=== PATIENT | female | born 1985 | race Caucasian/White ===

== ENCOUNTER 2017-11-12 10:15 | Inpatient (IN) | payer MEDICAID ==
[~2017-11-12 10:15] MED LIST: OXYTOCIN 30 UNITS/LR 500 ML BAG IV
[2017-11-12] MEDS ORDERED: MISOPROSTOL 200 MCG TAB PR ×2 (11:00→17:30)
[2017-11-12] MEDS ORDERED: CARBOPROST 250 MCG INJ IM ×2 (11:00→17:30)
[2017-11-12] MEDS ORDERED: METHYLERGONOVINE 0.2 MG INJ IM ×2 (11:00→17:30)
[2017-11-12] MEDS ORDERED: OXYTOCIN 30 UNITS/LR 500 ML IV ×2 (11:00→17:30)
[2017-11-12] MEDS: LACTATED RINGER'S 1,000 ML IV ×3 (11:23→21:46)
[2017-11-12 11:30] LABS: ADD MAN DIFF? NO
[2017-11-12] MEDS: DEXTROSE 5%-LR 1,000 ML IV (11:38)
[2017-11-12 11:39] LABS: WHITE BLOOD COUNT 9.4 10^3/ul (4.8-10.8)
[2017-11-12 11:39] LABS: BASOPHILS % 0.4 % (0.0-2.0); EOSINOPHILS # 0.1 10^3/ul (0.0-0.5); EOSINOPHILS % 0.7 % (0.0-7.0); HEMATOCRIT 36.7 % (37.0-47.0); HEMOGLOBIN 11.9 g/dl (12.0-16.0); LYMPHOCYTES # 2.5 10^3/ul (0.8-2.9); MEAN CORPUSCULAR HEMOGLOBIN 30.7 pg (29.0-33.0); MEAN CORPUSCULAR HGB CONC 32.4 g/dl (32.0-37.0); MEAN CORPUSCULAR VOLUME 94.8 fl (82.0-101.0); MEAN PLATELET VOLUME 12.9 fl (7.4-10.4); MONOCYTE # 0.7 10^3/ul (0.3-0.9); MONOCYTES % 7.1 % (0.0-11.0); NEUTROPHIL # 6.1 10^3/ul (1.6-7.5); NEUTROPHILS % 64.6 % (39.0-77.0); PLATELET COUNT 173 10^3/UL (140-415); RED BLOOD COUNT 3.87 10^6/ul (4.20-5.40); RED CELL DISTRIBUTION WIDTH 12.9 % (11.5-14.5)
[2017-11-12 11:59] LABS: ALANINE AMINOTRANSFERASE 20 IU/L (13-69); ALBUMIN 3.6 g/dl (3.3-4.9); ALBUMIN/GLOBULIN RATIO 1.09; ALKALINE PHOSPHATASE 194 IU/L (42-121); ANION GAP 11 (8-16); ASPARTATE AMINO TRANSFERASE 22 IU/L (15-46); BILIRUBIN,INDIRECT 0.6 mg/dl (0-1.1); BILIRUBIN,TOTAL 0.6 mg/dl (0.2-1.3); BLOOD UREA NITROGEN 11 mg/dl (7-20); CALCIUM 8.8 mg/dl (8.4-10.2); CARBON DIOXIDE 22 mmol/L (21-31); CHLORIDE 108 mmol/L (97-110); CREATININE 0.64 mg/dl (0.44-1.00); GLUCOSE 72 mg/dl (70-220); SODIUM 137 mmol/L (135-144); TOTAL PROTEIN 6.9 g/dl (6.1-8.1); URIC ACID 5.4 mg/dl (3.1-7.9)
[2017-11-12 12:16] LABS: INR 0.92; PROTIME 12.4 Sec (11.9-14.9)
[2017-11-12 12:17] LABS: PARTIAL THROMBOPLASTIN TIME 25.2 Sec (25.0-35.0)
[2017-11-12] MEDS ORDERED: BUPIVACAINE 0.75%/DEXT (SPINAL) 2 ML INJ (12:40)
[2017-11-12] MEDS ORDERED: morphine SULFATE/PF (10 MG/10 ML) INJ (12:40)
[2017-11-12] MEDS ORDERED: PHENYLephrine (100 MCG/ML) 5ML SYG (12:48)
[2017-11-12 13:14] LABS: ADD UMIC NO; UR ASCORBIC ACID NEGATIVE (NEGATIVE); UR BILIRUBIN (Dip) NEGATIVE (NEGATIVE); UR BLOOD (Dip) NEGATIVE (NEGATIVE); UR CLARITY CLEAR (CLEAR); UR COLOR YELLOW (YELLOW); UR GLUCOSE (Dip) NEGATIVE (NEGATIVE); UR KETONES (Dip) NEGATIVE (NEGATIVE); UR LEUKOCYTE ESTERASE (Dip) NEGATIVE Leu/ul (NEGATIVE); UR NITRITE (Dip) NEGATIVE (NEGATIVE); UR SPECIFIC GRAVITY (Dip) 1.012 (1.003-1.030); UR TOTAL PROTEIN (Dip) NEGATIVE (NEGATIVE); UR UROBILINOGEN (Dip) NEGATIVE (NEGATIVE)
[2017-11-12] MEDS: CEFAZOLIN 2 GM/50 ML (PMX) 50 ML IV (14:55)
[2017-11-12] MEDS: OXYTOCIN 30 UNITS/LR 500 ML IV ×2 (15:02→22:30)
[2017-11-12 15:16] LABS: RAPID PLASMA REAGIN NONREACTIVE (NR)
[2017-11-12] MEDS ORDERED: FENTAnyl 50 MCG/ML VIAL IV ×2 (16:00)
[2017-11-12] MEDS ORDERED: ONDANSETRON 4 MG INJ IV (16:00)
[2017-11-12] MEDS ORDERED: DIPHENHYDRAMINE 50 MG INJ IV ×2 (16:00)
[2017-11-12] MEDS ORDERED: HYDROmorphONE 1 MG/5 ML IV SYRINGE IV ×2 (16:00)
[2017-11-12] MEDS ORDERED: KETOROLAC 30 MG INJ IV ×2 (16:00)
[2017-11-12] MEDS ORDERED: METOCLOPRAMIDE 10 MG INJ IV (16:00)
[2017-11-12] MEDS ORDERED: NALOXONE (0.4 MG/ML) INJ IV (16:00)
[2017-11-12] MEDS ORDERED: HYDROmorphONE 0.5 MG/0.5 ML SYG IV (16:00)
[2017-11-12] MEDS ORDERED: LANOLIN 7 GM TUBE TOP (17:30)
[2017-11-12] MEDS: ONDANSETRON 4 MG INJ IV (19:41)
[2017-11-12] MEDS: SENNA/DOCUSATE NA (8.6MG/50MG) TAB PO (21:00)
[2017-11-13] MEDS: LACTATED RINGER'S 1,000 ML IV ×2 (06:09→17:24)
[2017-11-13 08:50] LABS: ADD MAN DIFF? NO
[2017-11-13 08:53] LABS: BASOPHILS % 0.2 % (0.0-2.0); EOSINOPHILS % 0.2 % (0.0-7.0); HEMATOCRIT 31.3 % (37.0-47.0); HEMOGLOBIN 10.6 g/dl (12.0-16.0); LYMPHOCYTES # 1.7 10^3/ul (0.8-2.9); LYMPHOCYTES % 10.7 % (15.0-51.0); MEAN CORPUSCULAR HEMOGLOBIN 31.9 pg (29.0-33.0); MEAN CORPUSCULAR HGB CONC 33.9 g/dl (32.0-37.0); MEAN CORPUSCULAR VOLUME 94.3 fl (82.0-101.0); MONOCYTE # 0.9 10^3/ul (0.3-0.9); MONOCYTES % 5.9 % (0.0-11.0); NEUTROPHIL # 13.2 10^3/ul (1.6-7.5); NEUTROPHILS % 82.3 % (39.0-77.0); PLATELET COUNT 156 10^3/UL (140-415); RED BLOOD COUNT 3.32 10^6/ul (4.20-5.40); RED CELL DISTRIBUTION WIDTH 12.8 % (11.5-14.5)
[2017-11-13] MEDS: SENNA/DOCUSATE NA (8.6MG/50MG) TAB PO ×2 (09:18→20:20)
[2017-11-13] MEDS: HYDROmorphONE 0.5 MG/0.5 ML SYG IV (13:07)
[2017-11-13] MEDS: IBUPROFEN 800 MG TAB PO ×2 (16:00→22:10)
[2017-11-13] MEDS: OXYCODONE/ACETAMINOPHEN (5/325) TAB PO ×2 (16:05→20:20)
[2017-11-14] MEDS: OXYCODONE/ACETAMINOPHEN (5/325) TAB PO ×3 (00:33→20:00)
[2017-11-14] MEDS: LACTATED RINGER'S 1,000 ML IV ×2 (01:24→09:24)
[2017-11-14] MEDS: IBUPROFEN 800 MG TAB PO ×3 (05:44→21:17)
[2017-11-14] MEDS: SENNA/DOCUSATE NA (8.6MG/50MG) TAB PO ×2 (09:33→21:17)
[2017-11-14 10:27] LABS: ADD MAN DIFF? NO
[2017-11-14 10:34] LABS: BASOPHIL # 0.1 10^3/ul (0.0-0.1); BASOPHILS % 0.3 % (0.0-2.0); EOSINOPHILS # 0.1 10^3/ul (0.0-0.5); EOSINOPHILS % 0.3 % (0.0-7.0); HEMATOCRIT 30.5 % (37.0-47.0); HEMOGLOBIN 10.1 g/dl (12.0-16.0); LYMPHOCYTES # 2.3 10^3/ul (0.8-2.9); LYMPHOCYTES % 12.6 % (15.0-51.0); MEAN CORPUSCULAR HEMOGLOBIN 31.2 pg (29.0-33.0); MEAN CORPUSCULAR HGB CONC 33.1 g/dl (32.0-37.0); MEAN CORPUSCULAR VOLUME 94.1 fl (82.0-101.0); MONOCYTE # 1.2 10^3/ul (0.3-0.9); MONOCYTES % 6.6 % (0.0-11.0); NEUTROPHIL # 14.6 10^3/ul (1.6-7.5); NEUTROPHILS % 79.5 % (39.0-77.0); PLATELET COUNT 188 10^3/UL (140-415); RED BLOOD COUNT 3.24 10^6/ul (4.20-5.40); RED CELL DISTRIBUTION WIDTH 13.1 % (11.5-14.5)
[2017-11-14 10:34] LABS: WHITE BLOOD COUNT 18.3 10^3/ul (4.8-10.8)
[2017-11-15] MEDS: IBUPROFEN 800 MG TAB PO ×2 (05:10→13:27)
[2017-11-15] MEDS: SENNA/DOCUSATE NA (8.6MG/50MG) TAB PO (08:12)
[2017-11-15] MEDS: OXYCODONE/ACETAMINOPHEN (5/325) TAB PO ×2 (08:12→13:27)
[2017-11-15 08:28] LABS: ADD MAN DIFF? NO
[2017-11-15 08:30] LABS: BASOPHILS % 0.2 % (0.0-2.0); EOSINOPHILS # 0.1 10^3/ul (0.0-0.5); EOSINOPHILS % 0.8 % (0.0-7.0); HEMATOCRIT 28.1 % (37.0-47.0); LYMPHOCYTES # 2.3 10^3/ul (0.8-2.9); LYMPHOCYTES % 17.4 % (15.0-51.0); MEAN CORPUSCULAR HEMOGLOBIN 30.6 pg (29.0-33.0); MEAN CORPUSCULAR VOLUME 95.6 fl (82.0-101.0); MEAN PLATELET VOLUME 11.6 fl (7.4-10.4); MONOCYTE # 0.7 10^3/ul (0.3-0.9); MONOCYTES % 5.1 % (0.0-11.0); NEUTROPHIL # 9.9 10^3/ul (1.6-7.5); NEUTROPHILS % 75.7 % (39.0-77.0); PLATELET COUNT 204 10^3/UL (140-415); RED BLOOD COUNT 2.94 10^6/ul (4.20-5.40); RED CELL DISTRIBUTION WIDTH 13.3 % (11.5-14.5)
[2017-11-15] MEDS: DIPHTH/TET/ACEL PERTUSS (ADULT) 0.5 ML VIAL IM* (10:35)
== END 2017-11-15 17:15 | disposition home or self-care (01) | DRG 766 ==
LOC: L-D 10:15 → PP1 17:09
PROC: 10D00Z1 Extraction of Products of Conception, Low, Open Approach (ICD-10-PCS; principal; 2017-11-12 12:30)
PROC: 0UB70ZZ Excision of Bilateral Fallopian Tubes, Open Approach (ICD-10-PCS; 2017-11-12 12:30)
PROC: 0UN90ZZ Release Uterus, Open Approach (ICD-10-PCS; 2017-11-12 12:30)
DX: O24.429 Gestational diabetes mellitus in childbirth, unspecified control (principal); O34.211 Maternal care for low transverse scar from previous cesarean delivery; O99.89 Other specified diseases and conditions complicating pregnancy, childbirth and the puerperium; N73.6 Female pelvic peritoneal adhesions (postinfective); Z3A.38 38 weeks gestation of pregnancy; Z37.0 Single live birth; Z30.2 Encounter for sterilization
CPT/HCPCS: 80053; 81003; 82962; 84560; 85025; 85384; 85610; 85730; 86592; 86850; 86900; 86901; 87086; 88302; 90715; 99464

== ENCOUNTER 2017-12-05 08:58 | Emergency (ER) | payer MEDICAID | END 2017-12-05 10:31 | disposition home or self-care (01) | LOC: FTE 08:58 | DX: O90.0 Disruption of cesarean delivery wound (principal); E11.9 Type 2 diabetes mellitus without complications; Z48.01 Encounter for change or removal of surgical wound dressing | CPT/HCPCS: 99281; Z7502 ==